=== PATIENT | male | born 1945 | race Caucasian/White ===

== ENCOUNTER → 2016-09-10 | Outpatient (CLI) | payer MEDICARE, BC | LOC: MW.CHIM 08:00 | PROVIDERS: ATTEND Internal Medicine | DX: I71.4 Abdominal aortic aneurysm, without rupture (principal); Z12.5 Encounter for screening for malignant neoplasm of prostate; I10 Essential (primary) hypertension; E78.00 Pure hypercholesterolemia, unspecified; R73.01 Impaired fasting glucose; J44.9 Chronic obstructive pulmonary disease, unspecified; E78.5 Hyperlipidemia, unspecified; N52.9 Male erectile dysfunction, unspecified | CPT/HCPCS: 99214 ==

== ENCOUNTER → 2016-09-12 | Outpatient (CLI) | payer MEDICARE, BC ==
[2016-09-12 16:19] LABS: CHLORIDE,CL 109 mmol/L (98-110); SODIUM,NA 140 mmol/L (136-146)
== END ==
LOC: MW.CHIM 15:41
PROVIDERS: ATTEND Internal Medicine
DX: I71.4 Abdominal aortic aneurysm, without rupture (principal); R91.1 Solitary pulmonary nodule; I10 Essential (primary) hypertension
CPT/HCPCS: 36415; 80053

== ENCOUNTER → 2016-09-16 | Outpatient (CLI) | payer MEDICARE, BC ==
[~2016-09-16] MED LIST: Iopamidol 755 MG/ML 500 ML Multipack Bottle IVPUSH STA
--- NOTE | 2016-09-16 11:39 | US ---
EXAMINATION: Abdominal ultrasound HISTORY: AAA COMPARISON: 05/22/2015 TECHNIQUE: Grayscale and color Doppler images obtained of the abdomen. FINDINGS: The visualized pancreas appear normal. The mid aorta measures up to 1.2 cm, grossly unchan ged in size and appearance. The gallbladder wall thickness is normal. No pericholecystic fluid or sh adowing gallstones. The liver is normal in contour and echogenicity without a focal hepatic mass. Th e visualized IVC appears normal. The right kidney measures 9.6 cm and the left kidney measures 10.9 cm [id number] without evidence of hydronephrosis. The spleen is borderline in size. No abdominal a scites. Sonographic Alvarez sign is negative. IMPRESSION: 1. Stable 3.2 cm mid abdominal aortic aneurysm.
--- NOTE | 2016-09-16 13:25 | CT ---
EXAMINATION: CT chest with contrast HISTORY: Pulmonary nodule COMPARISON: 04/20/2013, 05/22/2015 TECHNIQUE: Axial CT images obtained through the chest following the administration of 75 mL of Isovu e-370 right antecubital fossa. Coronal and sagittal reconstructions obtained. FINDINGS: The lungs are clear without focal consolidation. No pleural effusion or pneumothorax. Leticia nary artery calcifications are noted. The heart is normal in size without a pericardial effusion. No mediastinal or hilar lymphadenopathy. There is a stable tiny pulmonary nodule within the left apex, benign. The thoracic aorta is normal in caliber. The main pulmonary arteries are patent. The centra l airways are clear. Trace pulmonary emphysema. The visualized images of the upper abdomen appear normal. No suspicious osseous abnormalities identified. IMPRESSION: 1. No acute cardiopulmonary findings. 2. Stable tiny left apical nodule, no further follow-up required.
== END ==
LOC: MW.US 08:29
PROVIDERS: ATTEND Internal Medicine
DX: I71.4 Abdominal aortic aneurysm, without rupture (principal); R91.1 Solitary pulmonary nodule; R91.8 Other nonspecific abnormal finding of lung field
CPT/HCPCS: 71260; 76700; Q9967

== ENCOUNTER 2019-01-21 08:32 | Day surgery (SDC) | payer MEDICARE, BC ==
[~2019-01-21 08:32] MED LIST changes: -Iopamidol 755 MG/ML 500 ML Multipack Bottle IVPUSH STA; +Lactated Ringers 1,000 ML IV SCH
--- NOTE | 2019-01-21 09:19 | PCM.PREANE ---
Preanesthetic Assessment - Anesthesia/Transfusion/Family Hx Anesthesia History: Prior Anesthesia Without Reaction Family History of Anesthesia Reaction: No Transfusion History: No Prior Transfusion(s) - Review of Systems General: No Symptoms Pulmonary: No Symptoms Cardiovascular: No Symptoms Gastrointestinal: No Symptoms Neurological: No Symptoms Other: Reports: None - Physical Assessment NPO Status Date: 01/21/19 NPO Status Time: 07:00 Vital Signs: Last Vital Signs Temp 97.3 F 01/21/19 08:40 Pulse 78 01/21/19 08:40 Resp 16 01/21/19 08:40 BP 119/57 L 01/21/19 08:40 Pulse Ox 94 L 01/21/19 08:40 Height: 5 ft 7 in Weight: 77.111 kg ASA Class: 2 Mental Status: Alert & Oriented x3 Airway Class: Mallampati = 2 Dentition: Reports: Normal Dentition ROM/Head Extension: Full Lungs: Clear to Auscultation, Normal Respiratory Effort Cardiovascular: Regular Rate, Regular Rhythm - Allergies Allergies/Adverse Reactions: Allergies Allergy/AdvReac Type Severity Reaction Status Date / Time No Known Allergies Allergy Verified 01/19/19 11:07 - Blood Blood Available: No - Anesthesia Plan Pre-Op Medication Ordered: None - Acknowledgements Anesthesia Type Planned: General Anesthesia Pt an Appropriate Candidate for the Planned Anesthesia: Yes Alternatives and Risks of Anesthesia Discussed w Pt/Guardian: Yes Pt/Guardian Understands and Agrees with Anesthesia Plan: Yes Additional Comments: pmh: enlarged aorta being observed, COPD- no longer smokes, gerd, htn, hld PLAN: tiva PreAnesthesia Questionnaire HEENT History: Reports: Other (See Below) Other HEENT History: wears glasses Cardiovascular History: Reports: Aneurysm, High Cholesterol, Hypertension Respiratory History: Reports: COPD Gastrointestinal History: Reports: Colon Polyp, Diverticulosis, GERD Genitourinary History: Reports: None Musculoskeletal History: Reports: None Neurological History: Reports: None Psychiatric History: Reports: None Endocrine/Metabolic History: Reports: None Hematologic History: Reports: None Immunologic History: Reports: None Oncologic (Cancer) History: Reports: None Dermatologic History: Reports: None - Past Surgical History Head Surgeries/Procedures: Reports: None HEENT Surgical History: Reports: Tonsillectomy Cardiovascular Surgical History: Reports: None Respiratory Surgical History: Reports: None GI Surgical History: Reports: Appendectomy, Colonoscopy Male Surgical History: Reports: None Endocrine Surgical History: Reports: None Neurological Surgical History: Reports: None Musculoskeletal Surgical History: Reports: None Oncologic Surgical History: Reports: None Dermatological Surgical History: Reports: None - SUBSTANCE USE Smoking Status *Q: Former Smoker Tobacco Use Within Last Twelve Months: No Recreational Drug Use History: No - HOME MEDS Home Medications: Home Meds Fluticasone/Salmeterol [Advair Diskus 100-50] 1 puff INH BID 06/28/15 [History] Hydrochlorothiazide 25 mg PO BEDTIME 06/28/15 [History] Multivitamin [Multi-Day Vitamins] 1 tab PO DAILY 06/28/15 [History] Simvastatin [Zocor] 20 mg PO BEDTIME 06/28/15 [History] amLODIPine [Norvasc] 1 tab PO QAM 06/28/15 [History] Albuterol [Ventolin HFA] 1 - 2 puff INH Q4H PRN 01/19/19 [History] Gluc Cota 2KCl/Chondr/Vit C/Simone [Glucosamine-Chondr Complex] 1 cap PO BID [History] L.acidoph,Paracasei, B.lactis [Probiotic] 1 cap PO DAILY 01/19/19 [History] Omeprazole 20 mg PO ACBREAKFAST 01/19/19 [History] Potassium Chloride 10 meq PO DAILY 01/19/19 [History] Sildenafil Citrate 20 mg PO ASDIRECTED PRN 01/19/19 [History] - CURRENT (IN HOUSE) MEDS Current Meds: Current Medications Lactated Ringer's (Ringers, Lactated) 1,000 mls @ 125 mls/hr IV ASDIRECTED TANO Last Admin: 01/21/19 09:01 Dose: 125 mls/hr
[2019-01-21] MEDS ORDERED: fentaNYL 100 MCG/2 ML SDV ONE (10:22)
[2019-01-21] MEDS ORDERED: Propofol 200 MG/20 ML SDV ONE (10:22)
[2019-01-21] MEDS ORDERED: Lidocaine 2% 5 ML SDV ONE (10:22)
--- NOTE | 2019-01-21 10:26 | PCM.OPNOTE ---
- General Post-Op/Procedure Note Date of Surgery/Procedure: 01/21/19 Operative Procedure(s): Colonoscopy with cold cecal and rectal polypectomies Pre Op Diagnosis: Personal history of colon polyps Post-Op Diagnosis: Cecal and rectal polyps. Sigmoid diverticulosis. Anesthesia Technique: MAC (ASA II) Primary Surgeon: Aguilar Quarles Condition: Good Free Text/Narrative:: DICTATION [id number] CPT CODE [id number]
[2019-01-21] MEDS ORDERED: Lactated Ringers 1,000 ML IV SCH (10:30)
[2019-01-21 10:58] VITALS: BP 121/71; PULSE 73
--- NOTE | 2019-01-21 11:22 | PCM.POSTAN ---
POST ANESTHESIA ASSESSMENT - MENTAL STATUS Mental Status: Alert, Oriented - VITAL SIGNS Vital Signs: Last Vital Signs Temp 95.4 F 01/21/19 10:51 Pulse 73 01/21/19 10:51 Resp 16 01/21/19 10:51 BP 121/71 01/21/19 10:51 Pulse Ox 94 L 01/21/19 10:51 - RESPIRATORY Respiratory Status: Respiratory Rate WNL, Airway Patent, O2 Saturation Stable - CARDIOVASCULAR CV Status: Pulse Rate WNL, Blood Pressure Stable - GASTROINTESTINAL GI Status: No Symptoms - POST OP HYDRATION Hydration Status: Adequate & Stable
--- NOTE | 2019-01-21 11:23 | PCM48HPAN ---
Post Anesthesia Note - EVALUATION WITHIN 48HRS OF ANESTHETIC Vital Signs in Normal Range: Yes Patient Participated in Evaluation: Yes Respiratory Function Stable: Yes Airway Patent: Yes Cardiovascular Function Stable: Yes Hydration Status Stable: Yes Pain Control Satisfactory: Yes Nausea and Vomiting Control Satisfactory: Yes Mental Status Recovered: Yes Vital Signs: Last Vital Signs Temp 95.4 F 01/21/19 10:51 Pulse 73 01/21/19 10:51 Resp 16 01/21/19 10:51 BP 121/71 01/21/19 10:51 Pulse Ox 94 L 01/21/19 10:51
--- NOTE | 2019-01-21 14:26 | OR ---
SURGEON: Aguilar Quarles M.D. DATE OF PROCEDURE: 01/21/2019 OPERATION PERFORMED: Colonoscopy with cold cecal and rectal polypectomies. PRIMARY SURGEON: Aguilar Quarles MD. ANESTHESIA: MAC. ASA CLASSIFICATION: II. PREOPERATIVE DIAGNOSIS: Personal history of colon polyps. POSTOPERATIVE DIAGNOSES: 1. Cecal and rectal polyps. 2. Diverticulosis. DESCRIPTION OF PROCEDURE: The patient was taken to the endoscopy room and positioned on the endoscopy table in the left lateral decubitus position. Time-out was called for appropriate identification of the patient and procedure. Monitored anesthesia care was provided. The colonoscope was inserted into the rectum and advanced with minimal difficulty to the cecum. One small polyp was encountered in the cecum and removed with the cold biopsy forceps. The colonoscope was retroflexed to visualize the ascending colon from below, then straightened and slowly withdrawn. The ascending colon, hepatic flexure, transverse colon, splenic flexure, descending colon, and sigmoid colon showed no tumors, polyps, or angiodysplastic changes. The sigmoid colon demonstrates a few scattered diverticula. Another polyp was encountered in the rectum as the scope was withdrawn and removed with the cold biopsy forceps. The colonoscope was then retroflexed to visualize the anal orifice from above. No acute hemorrhoidal changes were noted. The colonoscope was then straightened, the rectum aspirated, and the colonoscope removed. The patient tolerated the procedure well and was taken to recovery room in stable condition. PHILLY / MATT /[id number]
== END 2019-01-21 11:21 | disposition home or self-care (01) ==
LOC: MW.SDS 08:32
PROVIDERS: ATTEND Surgery
DX: Z12.11 Encounter for screening for malignant neoplasm of colon (principal); D12.0 Benign neoplasm of cecum; K62.1 Rectal polyp; K57.30 Diverticulosis of large intestine without perforation or abscess without bleeding; K21.9 Gastro-esophageal reflux disease without esophagitis; I10 Essential (primary) hypertension; I71.4 Abdominal aortic aneurysm, without rupture; E78.00 Pure hypercholesterolemia, unspecified; J44.9 Chronic obstructive pulmonary disease, unspecified; Z87.891 Personal history of nicotine dependence; Z88.8 Allergy status to other drugs, medicaments and biological substances; Z86.010 Personal history of colon polyps; Z79.51 Long term (current) use of inhaled steroids; Z79.899 Other long term (current) drug therapy
CPT/HCPCS: 45380; J2001; J2704; J3010; J7120; 88305

== ENCOUNTER 2023-11-08 14:41 | Emergency (ER) | payer MEDICARE, BC ==
[2023-11-08] MEDS: Sodium Chloride 0.9% 2.5 ML Syringe FLUSH PRN (15:49)
[2023-11-08] MEDS: Sodium Chloride 0.9% 10 ML Syringe FLUSH PRN (15:50)
[2023-11-08 15:52] LABS: CORONAVIRUS COVID-19 NAA NEGATIVE (NEGATIVE); INFLUENZA A NAA NEGATIVE (NEGATIVE); INFLUENZA B NAA NEGATIVE (NEGATIVE); RESPIRATORY SYNCYTIAL VIR NAA NEGATIVE (NEGATIVE)
[2023-11-08 15:54] LABS: BASOPHILS ABSOLUTE AUTO 0.03 K/uL (0.00-0.20); BASOPHILS PERCENT AUTO 0.3 % (0.0-1.0); EOSINOPHILS PERCENT AUTO 4.2 % (0.0-6.0); HEMATOCRIT 39.9 % (42.0-52.0); IMMATURE GRAN ABSOLUTE AUTO 0.04 K/uL (0.00-0.05); IMMATURE GRAN PERCENT AUTO 0.4 % (0.0-0.4); LYMPHOCYTES PERCENT AUTO 5.2 % (24.0-44.0); MEAN CORPUSCULAR HGB CONC 35.1 g/dL (32.0-36.0); MEAN CORPUSCULAR VOLUME 88.3 fL (83.0-99.0); MONOCYTES ABSOLUTE AUTO 0.64 K/uL (0.00-0.80); MONOCYTES PERCENT AUTO 6.7 % (0.0-8.0); NEUTROPHILS ABSOLUTE AUTO 7.97 K/uL (1.80-7.70); NEUTROPHILS PERCENT AUTO 83.2 % (41.0-71.0); PLATELET COUNT,PLT 133 K/uL (150-400); RED BLOOD CELL COUNT 4.52 M/uL (4.52-5.90); WHITE BLOOD CELL COUNT,WBC 9.58 K/uL (3.9-11.3)
[2023-11-08 16:16] LABS: A/G RATIO 1.1 (0.9-1.6); ALBUMIN 3.6 g/dL (3.4-5.0); BILIRUBIN TOTAL 0.8 mg/dL (0.2-1.0); CALCIUM 8.5 mg/dL (8.5-10.1); CARBON DIOXIDE,CO2 26.7 mmol/L (21.0-32.0); CREATININE 1.2 mg/dL (0.8-1.3); EST CRCL DRUG DOSING (CG) 48.2 mL/min; POTASSIUM,K 3.2 mmol/L (3.5-5.1); PROTEIN TOTAL,TP 6.9 g/dL (6.4-8.2)
[2023-11-08] MEDS: chlorproMAZINE 50 MG/2 ML Amp IM ONE (16:41)
[2023-11-08] MEDS: Iopamidol 755 MG/ML 500 ML Multipack Bottle IVPUSH STA (17:03)
[2023-11-08] MEDS: Potassium Chloride 20 MEQ Tab.ER PO ONE (17:36)
[2023-11-08] MEDS: chlorproMAZINE 50 MG/2 ML Amp ONE (17:47)
[2023-11-08 18:41] VITALS: BP 160/70; PULSE 101
== END 2023-11-08 18:34 | disposition home or self-care (01) ==
LOC: MW.ED 14:41
DX: J02.9 Acute pharyngitis, unspecified (principal); R53.83 Other fatigue; I10 Essential (primary) hypertension; E78.00 Pure hypercholesterolemia, unspecified; J44.9 Chronic obstructive pulmonary disease, unspecified; K21.9 Gastro-esophageal reflux disease without esophagitis; Z90.49 Acquired absence of other specified parts of digestive tract; Z87.891 Personal history of nicotine dependence; Z75.8 Other problems related to medical facilities and other health care; Z79.899 Other long term (current) drug therapy
CPT/HCPCS: 0241U; 36415; 71275; 80053; 84484; 85025; 87651; 93005; 96372; 99284; A9270; J3230; J3490; Q9967

== ENCOUNTER 2024-05-07 16:26 | Emergency (ER) | payer MEDICARE, BC ==
[2024-05-07 16:57] LABS: BASOPHILS ABSOLUTE AUTO 0.03 K/uL (0.00-0.20); BASOPHILS PERCENT AUTO 0.4 % (0.0-1.0); EOSINOPHILS PERCENT AUTO 4.9 % (0.0-6.0); HEMOGLOBIN 14.1 g/dL (14.0-18.0); IMMATURE GRAN ABSOLUTE AUTO 0.02 K/uL (0.00-0.05); IMMATURE GRAN PERCENT AUTO 0.2 % (0.0-0.4); LYMPHOCYTES ABSOLUTE AUTO 0.66 K/uL (1.00-4.80); LYMPHOCYTES PERCENT AUTO 8.2 % (24.0-44.0); MEAN CORPUSCULAR HEMOGLOBIN 29.9 pg (28.0-32.0); MEAN CORPUSCULAR HGB CONC 34.4 g/dL (32.0-36.0); MEAN CORPUSCULAR VOLUME 86.9 fL (83.0-99.0); MONOCYTES ABSOLUTE AUTO 0.61 K/uL (0.00-0.80); MONOCYTES PERCENT AUTO 7.5 % (0.0-8.0); NEUTROPHILS ABSOLUTE AUTO 6.37 K/uL (1.80-7.70); NEUTROPHILS PERCENT AUTO 78.8 % (41.0-71.0); PLATELET COUNT,PLT 143 K/uL (150-400); RED BLOOD CELL COUNT 4.72 M/uL (4.52-5.90); WHITE BLOOD CELL COUNT,WBC 8.09 K/uL (3.9-11.3)
[2024-05-07 17:12] LABS: CARBON DIOXIDE,CO2 26.4 mmol/L (21.0-32.0); CREATININE 1.2 mg/dL (0.8-1.3); EST CRCL DRUG DOSING (CG) 48.2 mL/min
[2024-05-07] MEDS: Iopamidol 755 MG/ML 500 ML Multipack Bottle IVPUSH STA (17:13)
[2024-05-07] MEDS: Morphine 2 MG/ML SYRINGE IVPUSH ONE (17:49)
[2024-05-07 18:53] VITALS: BP 151/92; PULSE 76
== END 2024-05-07 18:52 | disposition home or self-care (01) ==
LOC: MW.ED 16:26
DX: S20.221A Contusion of right back wall of thorax, initial encounter (principal); I10 Essential (primary) hypertension; E78.00 Pure hypercholesterolemia, unspecified; J44.9 Chronic obstructive pulmonary disease, unspecified; K21.9 Gastro-esophageal reflux disease without esophagitis; Z90.49 Acquired absence of other specified parts of digestive tract; Z79.899 Other long term (current) drug therapy; Z79.51 Long term (current) use of inhaled steroids; W55.22XA Struck by cow, initial encounter
CPT/HCPCS: 36415; 74177; 80048; 85025; 96374; 99284; J2270; Q9967

== ENCOUNTER 2025-04-17 09:30 | Day surgery (SDC) | payer MEDICARE, BC ==
[2025-04-17] MEDS: Lactated Ringers 1,000 ML IV SCH (09:55)
[2025-04-17] MEDS ORDERED: propofoL 500 MG/50 ML 50 ML ONE (10:18)
[2025-04-17] MEDS ORDERED: Lactated Ringers 1,000 ML IV SCH (11:30)
[2025-04-17 11:40] VITALS: PULSE 69
[2025-04-17 12:01] VITALS: BP 135/80
== END 2025-04-17 12:15 | disposition home or self-care (01) ==
LOC: MW.SDS 09:30
PROVIDERS: ATTEND Surgery
DX: Z12.11 Encounter for screening for malignant neoplasm of colon (principal); K57.30 Diverticulosis of large intestine without perforation or abscess without bleeding; E78.5 Hyperlipidemia, unspecified; I10 Essential (primary) hypertension; Z86.0101 Personal history of adenomatous and serrated colon polyps; Z88.8 Allergy status to other drugs, medicaments and biological substances; Z87.891 Personal history of nicotine dependence; Z79.899 Other long term (current) drug therapy
CPT/HCPCS: G0105; J2704; J7120; 00811; 45378; 99100